=== PATIENT | male | born 1985 | race African-American/Black ===

== ENCOUNTER 2022-04-30 13:49 | Emergency (ER) | payer OTHER, SELFPAY ==
[2022-04-30 13:59] VITALS: BP 150/90; PULSE 99; RESP 18; TEMP 35.9; O2SAT 98
--- NOTE | 2022-04-30 14:02 | ED.EAR ---
HPI - Ear Problem General Chief complaint: Ear Stated complaint: left ear clogged Time Seen by Provider: 04/30/22 14:00 Source: patient Mode of arrival: ambulatory Limitations: no limitations History of Present Illness HPI Narrative: Mr. Bowman is a 37-year-old male patient presenting to the clinic today with complaints of bilateral ears feeling clogged with decreased hearing. He reports that the left ear is worse than the right. He would like to have his ears cleaned out if possible. Related Data Home Medications Medication Instructions Recorded Confirmed No Home Medications 04/30/22 04/30/22 Allergies Allergy/AdvReac Type Severity Reaction Status Date / Time No Known Allergies Allergy Unknown Verified 05/10/14 17:12 Review of Systems Review of Systems: Pertinent positives per HPI. Patient denies any fever, chills, rash, headache, visual changes, dizziness, cough, runny nose, sore throat, shortness of breath, chest pain, palpitations, nausea, vomiting, diarrhea, constipation, abdominal pain, or any urinary issues. PMFSH Comments At the time of my signature, I reviewed and agree with the nursing past medical, surgical, social, and family history. There is no relevant family history pertinent to the patient complaint. Exam Narrative: General: Well-developed, well nourished, in no apparent distress Head: Normocephalic, atraumatic Eyes: Pupils equally round and reactive to light bilaterally, EOM intact, sclera and conjunctive clear, no discharge, lids normal Ears: Bilateral cerumen impaction, ear irrigation performed and successful, TMs intact and clear,no drainage, grossly hearing normal. Nose: Nares patent, no discharge, no inflammation, no sinus tenderness. Mouth: Oropharynx without lesions or masses, good dentition, MMM. Neck: Supple, trachea midline, no enlargement of anterior or posterior cervical nodes, no thyroid masses or goiter palpable. Cardio: Regular rate and rhythm, s1 and s2 normal, no murmur appreciated. Resp: Clear to auscultation bilaterally anteriorly and posteriorly, no rhonchi, rales, wheezing or rubs Course Course Emergency Course: Portions of this record may have been created with voice recognition software. Level of Care: Express Care Visit Vital Signs Vital signs: Vital Signs Temperature 35.9 C L 04/30/22 13:59 Pulse Rate 99 04/30/22 13:59 Respiratory Rate 18 04/30/22 13:59 Blood Pressure 150/90 H 04/30/22 13:59 Pulse Oximetry 98 04/30/22 13:59 Temperature 35.9 C L 04/30/22 13:59 Pulse Rate 99 04/30/22 13:59 Respiratory Rate 18 04/30/22 13:59 Blood Pressure 150/90 H 04/30/22 13:59 Pulse Oximetry 98 04/30/22 13:59 Vital signs reviewed Procedures Ear Wax Removal Both Ears: Ear Wax Removal Date: 04/30/22 Results: Re-examined: cerumen removed completely TM Examination: TM(s) intact, normal appearance Ear Canal Exam: atraumatic Patient Tolerated Procedure: well Complications: no problems Technique: ear canal irrigated and ear canal curetted Additional Comments: Verbal consent obtained for bilateral ear irrigation. Risk and benefits explained and patient voiced understanding. Half peroxide half warm water was used to irrigate bilateral ear canals and a ear curette was used to remove balls of cerumen from the distal ear canal. Patient tolerated procedure well and procedure was successful. Medical Decision Making MDM Narrative Medical decision making narrative: At the time of visit patient has bilateral cerumen impaction to bilateral ears canals. Ear irrigation performed bilaterally and the ear curette was used to remove balls of earwax from the distal ear canal. Irrigation was performed successfully. Patient voiced that he can hear significantly better after procedure. Supportive measures were discussed and patient voiced understanding of discharge instructions. Differential Diagnosis D
== END 2022-04-30 14:19 | disposition home or self-care (01) ==
PROVIDERS: Emergency Provider Nurse Practitioner Family
DX: H61.23 Impacted cerumen, bilateral (principal)
CPT/HCPCS: 69210; 99202; G0463

== ENCOUNTER 2023-02-23 00:37 | Emergency (ER) | payer BC, SELFPAY ==
--- NOTE | ~2023-02-23 | CT_ITS ---
EXAMINATION: CT brain wo con DATE: 02/23/2023 02:12 INDICATION: Intermittent right-sided head pressure. TECHNIQUE: Computed tomography (CT) of the head was performed without intravenous contrast. The mA wa s adjusted according to patient size. Iterative reconstruction technique was employed. The dose-lengt h product was 681.00 mGy-cm. COMPARISON: None FINDINGS: There is no intracranial hemorrhage, acute infarction, or abnormal intracranial mass lesion . The ventricles are normal in size. The orbits are normal. There is mild mucosal thickening in the p aranasal sinuses. The mastoid air cells are normal. There is cerumen in the external auditory canals. IMPRESSION: 1. Normal brain. Reviewed, dictated and finalized at location A. IMPRESSION: 1. Normal brain.
[2023-02-23 00:47] VITALS: BP 148/97; PULSE 106; RESP 18; TEMP 36.8; O2SAT 99
[2023-02-23 03:42] VITALS: BP 126/80; PULSE 72; RESP 18; TEMP 36.6; O2SAT 100
--- NOTE | 2023-02-23 04:42 | ED.GENADULT ---
HPI - General Adult General Chief complaint: Headache Stated complaint: weird feeling in my head Time Seen by Provider: 02/23/23 03:57 History of Present Illness HPI narrative: 37-year-old male presenting the emergency department for evaluation of right-sided head pressure that has been occurring intermittently over the last few weeks. Patient states he has had some pressure intermittently over the last week or so but that today he had an episode that was more significant. Patient states the episode of intense pressure happened while he was at work today and at rest. Patient denies any actual pain with this and specifically denies any sharp or stabbing pain. Patient describes the pressure as being located at the side of his head. Patient denies any vision changes denies any numbness weakness denies any facial droop or slurred speech with this. Patient states that his symptoms have improved at this time. Related Data Home Medications Medication Instructions Recorded Confirmed No Home Medications 04/30/22 04/30/22 Allergies Allergy/AdvReac Type Severity Reaction Status Date / Time No Known Allergies Allergy Unknown Verified 05/10/14 17:12 Review of Systems Review of Systems: All systems reviewed & are unremarkable except as noted in HPI and below Exam Narrative: APPEARANCE: Well appearing, no pain, no distress, well-nourished. HEAD: normocephalic, atraumatic. EYES: PERRLA/EOMI, conjunctivae clear. NOSE: Normal no drainage EARS:TMS clear with good light reflex. THROAT: Pharynx clear, no exudate. NECK: Supple. No adenopathy, no masses. RESPIRATORY: Airway patent, respirations nonlabored. Clear to auscultation bilaterally, no rales, rhonchi, wheezing. CARDIOVASCULAR: Regular rate and rhythm without murmurs rubs or gallops. ABDOMINAL: Soft, nontender, nondistended, normal bowel sounds MUSCULOSKELETAL: Moves all extremities. Strength/ROM intact, No edema, No calf tenderness. NEURO: Alert. Cranial nerves II through XII intact. Grossly intact. No ataxia, no drift, normal forward and backward tandem gait. Normal Romberg SKIN: Warm, dry. Normal Color Course Course Emergency Course: 37-year-old male with history of intermittent right-sided head pressure. Patient did have some tenderness to the right frontal sinus. Symptoms may be secondary to a sinusitis. Patient's head CT was negative for acute intracranial abnormality. Patient was updated on the results of the imaging. All question concerns were addressed. Patient was well-appearing at time of discharge. Vital Signs Vital signs: Vital Signs Temperature 98.2 F 02/23/23 00:47 Pulse Rate 106 H 02/23/23 00:47 Respiratory Rate 18 02/23/23 00:47 Blood Pressure 148/97 H 02/23/23 00:47 Pulse Oximetry 99 02/23/23 00:47 Oxygen Delivery Room Air 02/23/23 00:47 Temperature 97.6 F 02/23/23 06:13 Pulse Rate 84 02/23/23 06:25 Respiratory Rate 17 02/23/23 06:25 Blood Pressure 127/91 H 02/23/23 06:25 Pulse Oximetry 100 02/23/23 06:25 Oxygen Delivery Room Air 02/23/23 00:47 Medical Decision Making Vital Signs Vital Signs: Vital Signs Temperature 98.2 F 02/23/23 00:47 Pulse Rate 106 H 02/23/23 00:47 Respiratory Rate 18 02/23/23 00:47 Blood Pressure 148/97 H 02/23/23 00:47 Pulse Oximetry 99 02/23/23 00:47 Oxygen Delivery Room Air 02/23/23 00:47 Temperature 97.6 F 02/23/23 06:13 Pulse Rate 84 02/23/23 06:25 Respiratory Rate 17 02/23/23 06:25 Blood Pressure 127/91 H 02/23/23 06:25 Pulse Oximetry 100 02/23/23 06:25 Oxygen Delivery Room Air 02/23/23 00:47 Imaging Data Radiologist's impression: Overnight read CT head no acute intracranial abnormality Discharge Plan Discharge Clinical Impression: Headache Patient Disposition: Home, Self-Care Condition: Stable Instructions: Antibiotic Form, Cluster Headache (ED), Acute Headache (ED) Additional Instructions: Tylenol an
[2023-02-23 06:13] VITALS: BP 127/91; PULSE 76; RESP 14; TEMP 36.4; O2SAT 93
[2023-02-23 06:25] VITALS: BP 127/91; PULSE 84; RESP 17; O2SAT 100
== END 2023-02-23 06:26 | disposition home or self-care (01) ==
PROVIDERS: Emergency Provider Emergency Medicine
DX: R51.9 Headache, unspecified (principal)
CPT/HCPCS: 70450; 99284

== ENCOUNTER 2024-04-01 09:27 | Emergency (ER) | payer SELFPAY ==
[2024-04-01 09:36] VITALS: BP 143/104; PULSE 100; RESP 16; TEMP 36.8; O2SAT 98
--- NOTE | 2024-04-01 09:38 | ED.EAR ---
HPI - Ear Problem General Chief complaint: Ear Stated complaint: Ear pain Time Seen by Provider: 04/01/24 09:38 Source: patient, RN notes reviewed and old records reviewed Mode of arrival: ambulatory Limitations: no limitations History of Present Illness HPI Narrative: 38-year-old male to Express Care for complaint of bilateral ear discomfort and fullness for 5 days. Patient endorses history of bilateral impacted cerumen that has had to be removed in clinic. Patient states he has attempted to treat at home with earwax drops without relief. Patient also endorsing muffled hearing bilaterally. Patient denies fever, sore throat, headache, cough, allergies. Related Data Home Medications Medication Instructions Recorded Confirmed No Home Medications 04/30/22 04/01/24 Allergies Allergy/AdvReac Type Severity Reaction Status Date / Time No Known Allergies Allergy Unknown Verified 05/10/14 17:12 Review of Systems Review of Systems: All systems reviewed & are unremarkable except as noted in HPI and below Constitutional: Constitutional: Reports no additional constitutional complaints Eyes: Eyes: Reports no additional eye complaints ENT: Reports as per HPI, Denies dizziness, Denies ear discharge, Reports otalgia ( bilateral), Denies headache(s), Reports hearing loss and Denies sore throat Cardiovascular: Cardiovascular: Reports no additional cardiovascular complaints, Denies chest pain and Denies dyspnea Respiratory: Respiratory: Reports no additional respiratory complaints, Denies cough and Denies dyspnea Musculoskeletal: Musculoskeletal: Reports no additional musculoskeletal complaints Neurologic: Reports system reviewed and no additional complaints, except as documented Psychiatric: Psychiatric: Reports no additional psychiatric complaints PMFSH Comments At the time of my signature, I reviewed and agree with the nursing past medical, surgical, social, and family history. There is no relevant family history pertinent to the patient complaint. Exam Const: General: cooperative, healthy appearing, comfortable, no acute distress, alert and well nourished Nutritional Appearance: well nourished Orientation/consciousness: patient oriented x3 Limitations: no limitations HENMT: Head: normal to inspection Ears: Abnormal EAC present cerumen impaction bilateral and EAC tenderness bilateral; no otic discharge Face/Nose/Sinus: Normal external nose present, Normal nares present, normal facial exam, No erythema and No edema Face and sinus: normal facial exam, no erythema and no edema Mouth: Yes Normal oral and palatal mucosa present Eyes: General: appearance normal, both eyes and all related structures Neck: Neck: normal visual inspection, full ROM and no meningeal signs Lymphatic: no lymphadenopathy noted and no lymphedema noted Chest: Chest palpation & inspection: normal inspection of the chest Resp: Effort & Inspection: normal respiratory effort and able to speak in complete sentences Auscultation: clear to auscultation bilaterally Cardio: Jugular venous distension: no JVD Rate: regular rate Rhythm: regular rhythm Back/Spine/Pelvis: Cervical Spine: cervical ROM normal Skin: General skin exam: normal color, no rashes or lesions noted and turgor normal Neuro: General: patient oriented x3, gait normal, moves all extremities and no meningeal signs Speech: normal speech Gait exam (Neuro): Normal gait present Extrem: General: normal to inspection, full ROM and capillary refill normal Psych: Appearance: grossly normal and well kempt Course Course Emergency Course: Some parts of this dictation were generated by voice recognition software and may contain typographical and/or grammatical inaccuracies. Level of Care: Express Care Visit Vital Signs Vital signs: Vital Signs Temperature 36.8 C 04/01/24 09:36 Pulse Rate 100 04/01/24 09:36 Respiratory Rate 16 04/01/24 09:36 Blood Pressure 143/104 H
== END 2024-04-01 10:20 | disposition home or self-care (01) ==
PROVIDERS: Emergency Provider Nurse Practitioner Family
DX: H61.23 Impacted cerumen, bilateral (principal)
CPT/HCPCS: 69210; 99212; G0463